=== PATIENT | female | born 1985 | race Asian ===

== ENCOUNTER 2019-06-27 14:30 | Emergency (ER) | payer SELFPAY ==
[~2019-06-27] VITALS: Ht 165.1 cm; Wt 98.7 kg
[2019-06-27 14:35] VITALS: BP 132/86; Ht 165.1 cm; Wt 98.7 kg
== END 2019-06-27 16:46 | disposition left against medical advice (07) ==
LOC: ED 14:30
DX: Z53.21 Procedure and treatment not carried out due to patient leaving prior to being seen by health care provider (principal)